=== PATIENT | male | born 1975 ===

== ENCOUNTER 2018-11-15 00:27 | Emergency (ER) | payer SELFPAY ==
[2018-11-15 00:35] VITALS: RESP 18; TEMP 98.6; O2SAT 98
[2018-11-15] MEDS ORDERED: Tdap Vaccine 0.5 ml Vial (10-64 yrs) IM ONE ×2 (00:47→00:58)
[2018-11-15] MEDS ORDERED: Bacitracin 500 Units/gm Oint Foilpak UD TOP STA (00:47)
[2018-11-15] MEDS ORDERED: Bacitracin 500 Units/gm Oint Foilpak UD ONE (00:57)
[2018-11-15] MEDS ORDERED: Sodium Chloride 0.9% 1,000 ML IV SCH (01:00)
[2018-11-15 01:25] LABS: HEMOGLOBIN 15.5 g/dL (12.0-18.0); MEAN CELL VOLUME 96.5 fl (80.0-94.0); MEAN CORPUSCULAR HEMOGLOBIN 32.5 pg (27.0-31.0); MEAN CORPUSCULAR HGB CONC 33.7 g/dL (33.0-37.0); RBC 4.78 Mil/uL (4.40-5.90); RED CELL DISTRIBUTION WIDTH 13.7 % (11.5-14.5); WHITE BLOOD COUNT 6.7 K/uL (4.8-10.8)
[2018-11-15 01:34] LABS: ALB/GLOB RATIO 1.4 (1.0-2.1); ALBUMIN 4.3 g/dL (3.5-5.0); ALT/SGPT 60 U/L (21-72); AST/SGOT 36 U/L (17-59); BLOOD UREA NITROGEN 15 mg/dl (9-20); CALCIUM 9.1 mg/dL (8.4-10.2); GFR NON-AFRICAN AMERICAN > 60
--- NOTE | 2018-11-15 02:35 | ED PDOC ---
HPI: Psych/Substance Abuse Time Seen by Provider: 11/15/18 00:36 Chief Complaint (Nursing): Alcohol Ingestion Chief Complaint (Provider): Alcohol Intoxication ED Caveat: Intoxicated History Per: Patient, EMS History/Exam Limitations: intoxication Onset/Duration Of Symptoms: Mins Current Symptoms Are (Timing): Still Present Additional Complaint(s): 43 year old male presents to the ED via EMS for alcohol intoxication and head injury. Patient is a poor historian due to alcohol. Patient reports he was drinking today. He states he fell outside the bar and hit his head. Patient does not provide much other information and does not give an answer to whether tetanus vaccination is up to date or not. PMD: none Past Medical History Reviewed: Historical Data, Nursing Documentation, Vital Signs Vital Signs: Last Vital Signs Temp 98.6 F 11/15/18 00:33 Pulse 97 H 11/15/18 00:33 Resp 18 11/15/18 00:33 BP 123/86 11/15/18 00:33 Pulse Ox 98 11/15/18 00:33 - Medical History PMH: No Chronic Diseases - Surgical History Surgical History: No Surg Hx - Family History Family History: States: Unknown Family Hx - Social History Drugs: Denies - Allergies Allergies/Adverse Reactions: Allergies Allergy/AdvReac Type Severity Reaction Status Date / Time No Known Allergies Allergy Verified 11/15/18 00:34 Review of Systems ROS Statement: Except As Marked, All Systems Reviewed And Found Negative Musculoskeletal: Positive for: Other (Head injury) Psych: Positive for: Other (Intoxication) Physical Exam - Reviewed Nursing Documentation Reviewed: Yes Vital Signs Reviewed: Yes - Physical Exam Appears: Positive for: No Acute Distress (Intoxicated) Head Exam: Negative for: ATRAUMATIC (left forehead linear 2cm superficial abrasion with dried blood, +well healed scar to right head) Skin: Positive for: Normal Color, Warm, Dry Eye Exam: Positive for: Normal appearance, EOMI, PERRL, Other (Extraocular movement intact; Dried blood to left eyebrow with mild swelling). Negative for: Periorbital swelling, Periorbital tenderness ENT: Positive for: Normal ENT Inspection, Pharynx Is (clear, no oral abrasions or lacerations), TM Is/Are (clear, no hemotympanum) Neck: Positive for: Normal, Painless ROM. Negative for: Pain On Movement Of Neck Cardiovascular/Chest: Positive for: Regular Rate, Rhythm, Chest Non Tender Respiratory: Positive for: Normal Breath Sounds. Negative for: Accessory Muscle Use, Rales, Rhonchi, Wheezing, Respiratory Distress Gastrointestinal/Abdominal: Positive for: Normal Exam, Soft. Negative for: Tenderness Back: Positive for: Normal Inspection. Negative for: Vertebral Tenderness, Decreased ROM, Muscle Spasm Extremity: Positive for: Normal ROM, Capillary Refill (<2 sec). Negative for: Tenderness, Deformity Neurological/Psych: Positive for: Awake, Other (Responding to questions, intoxicated) - Laboratory Results Result Diagrams: 11/15/18 00:57 11/15/18 00:57 Lab Results: Total Bilirubin 0.4 mg/dl (0.2-1.3) 11/15/18 00:57 AST 36 U/L (17-59) 11/15/18 00:57 ALT 60 U/L (21-72) 11/15/18 00:57 Alkaline Phosphatase 54 U/L (38-126) 11/15/18 00:57 Total Protein 7.3 G/DL (6.3-8.2) 11/15/18 00:57 Albumin 4.3 g/dL (3.5-5.0) 11/15/18 00:57 Globulin 3.0 gm/dL (2.2-3.9) 11/15/18 00:57 Albumin/Globulin Ratio 1.4 (1.0-2.1) 11/15/18 00:57 - ECG O2 Sat by Pulse Oximetry: 98 (RA) Pulse Ox Interpretation: Normal Medical Decision Making Medical Decision Making: Initial Impression: Alcohol intoxication Initial Plan: --CT Head --CT maxillofacial --Alcohol serum stat --CMP --CBC --Tetanus 0.5mL --Bacictracin 1ea TOP --Sodium chloride 1000mL 0338 CT scan of the facial bones. Indication: 11/15/2018 02:20 AM EDT: CT: MAXILLOFACIAL W/O CONTRAST (current study). Technique: Axial CT scan images without contrast. Reformatted coronal and sag ittal images. Findings: Chronic mucosal inflammatory changes of the maxillary sinuses and ethmoid air cells. Left frontal soft tissue contusion. Normal bilateral orbital contents. Normal bilateral medial and inferior orbital franz. Normal bilateral maxillary bones. Normal bilateral maxillary sinuses. Normal bilateral frontozygomatic arches. Normal bilateral zygomatic temporal arches. Normal nasal bones. Normal anterior nasal spine. There is no demonstrated fracture. Impression: No CT evidence of acute bone pathology. Thank you for your kind referral of this patient. CT SCAN OF THE BRAIN WITHOUT IV CONTRAST CLINICAL INDICATION: Trauma. TECHNIQUE: Axial and reformatted sagittal and coronal images of the brain obtained without IV contrast administration. FINDINGS: Right frontal craniotomy. Underlying encephalomalacia extending to the corresponding aspect of the right lateral ventricle with surrounding cortical atrophy and ex vacuo dilatation of the right lateral ventricle. Normal size of the remaining ventricles and extra-axial spaces for the patient's age. Normal basal ganglia and thalami. Normal brainstem. Normal cerebellum. There is no demonstrated extra-axial, intraparenchymal, or intraventricular hemorrhage. There are no findings of an acute ischemic infarction. Normal calvarium. There is no demonstrated fracture. Normal soft tissue structures. Chronic mucosal inflammatory changes of the visualized paranasal sinuses. IMPRESSION: No CT evidence of an acute pathology. Electronically signed on Nov 15, 2018 3:40:29 AM EDT by: Les Perales M.D., Certified by ABR, MSK, Neuroradiology 0505 re eval pt is sleeping, easily arousable, pt reports being tired, he states he had a brain tumor removed in 2016 (as per CT read) 0550 on re eval pt is awake, alert and oriented x3, walking around ER with steady gait, reports feeling better pt neurologically intact, walking and talking, pt is stable for dc discussed results, diagnosis, treatment, return precautions and f/u with pt who is understanding, in agreement and stable for dc Scribe Attestation: Documented by Pramod Egan acting as a scribe for Andrez PERSAUD. Provider Scribe Attestation: All medical record entries made by the Scribe were at my direction and personally dictated by me. I have reviewed the chart and agree that the record accurately reflects my personal performance of the history, physical exam, medical decision making, and the department course for this patient. I have also personally directed, reviewed, and agree with the discharge instructions and disposition. Disposition - Clinical Impression Clinical Impression: Alcohol abuse with intoxication, Head injury, Abrasion head - Patient ED Disposition Is Patient to be Admitted: No Counseled Patient/Family Regarding: Studies Performed, Diagnosis, Need For Followup - Disposition Referrals: your, primary doctor [Other] Disposition: Routine/Home Disposition Time: 05:56 Condition: IMPROVED Additional Instructions: The emergency medical care you received today was directed at your acute symptoms. Keep wound clean, dry and covered. If you were prescribed any medication, please fill it and take as directed. It may take several days for yo ur symptoms to resolve. Return to the Emergency Department if your symptoms worsen, do not improve, or if you have any other problems. Please contact your doctor in 2 days for re-evaluation and follow up / or call one of the physicians/clinics you have been referred to that are listed on the Patient Visit Information form that is included in your discharge packet. Bring any paperwork you were given at discharge with you along with any medications you are taking to your follow up visit. Our treatment cannot replace ongoing medical care by a primary care provider (PCP) outside of the emergency department. Instructions: Alcohol Use - When Is Drinking a Problem?, Skin Abrasions, Minor Head Injury Forms: [employer] (Bulgarian) Print Language: NEPALESE - POA Present On Arrival: None
[2018-11-15 06:07] VITALS: BP 127/79; PULSE 88
--- NOTE | 2018-11-15 11:49 | CT ---
Date of service: 11/15/2018 PROCEDURE: CT HEAD WITHOUT CONTRAST. HISTORY: drunk, fall, injury COMPARISON: None available. TECHNIQUE: Axial computed tomography images were obtained through the head/brain without intravenous contrast. Radiation dose: Total exam DLP = 903.29 mGy-cm. This CT exam was performed using one or more of the following dose reduction techniques: Automated exposure control, adjustment of the mA and/or kV according to patient size, and/or use of iterative reconstruction technique. FINDINGS: HEMORRHAGE: No intracranial hemorrhage. BRAIN: No mass effect or edema. Mild atrophy. No chronic microvascular ischemic changes. Encephalomalacia in the right frontal region extending to the body of the right lateral ventricle likely related to prior ventriculostomy catheter. VENTRICLES: Prominent. No hydrocephalus. CALVARIUM: Prior right frontal craniotomy/cranioplasty PARANASAL SINUSES: Unremarkable as visualized. No significant inflammatory changes. MASTOID AIR CELLS: Unremarkable as visualized. No inflammatory changes. OTHER FINDINGS: Left frontal scalp swelling. IMPRESSION: Left frontal scalp swelling. No calvarial fracture. No acute intracranial pathology. Right frontal encephalomalacia and craniotomy/cranioplasty most likely related to previous ventriculostomy catheter.
--- NOTE | 2018-11-15 11:50 | CT ---
Date of service: 11/15/2018 PROCEDURE: CT MAXILLOFACIAL BONES WITHOUT CONTRAST HISTORY: fall, drunk, laceration COMPARISON: None available. TECHNIQUE: Contiguous axial CT images of the maxillofacial bones were obtained. Coronal and sagittal reformats were generated. Radiation dose: Total exam DLP = 821.77 mGy-cm. This CT exam was performed using one or more of the following dose reduction techniques: Automated exposure control, adjustment of the mA and/or kV according to patient size, and/or use of iterative reconstruction technique. FINDINGS: NASAL BONES: Unremarkable. ORBITS: Unremarkable. PARANASAL SINUSES/ MASTOIDS: Clear. MAXILLA: Unremarkable. MANDIBLE/ TEMPOROMANDIBULAR JOINTS: Unremarkable. SKULL BASE: Unremarkable. TEMPORAL BONES: Middle ears and mastoid grossly unremarkable. OTHER FINDINGS: Left frontal scalp swelling. IMPRESSION: Left frontal scalp swelling. Unremarkable non contrast enhanced CT of the maxillofacial bones.
== END 2018-11-15 06:06 | disposition home or self-care (01) ==
LOC: H.ER 00:27
DX: F10.129 Alcohol abuse with intoxication, unspecified (principal); S09.90XA Unspecified injury of head, initial encounter; W19.XXXA Unspecified fall, initial encounter; Y92.89 Other specified places as the place of occurrence of the external cause; D49.6 Neoplasm of unspecified behavior of brain; G93.89 Other specified disorders of brain
CPT/HCPCS: 70450; 70486; 80053; 82948; 85027; 90471; 90715; 96360; 99284; G0480; J7030